=== PATIENT | female | born 1960 | race Asian ===

== ENCOUNTER 2019-06-14 13:37 | Outpatient (CLI) | payer MEDICAID ==
[2019-06-14 15:57] VITALS: BP 115/76
--- NOTE | 2019-06-14 21:00 | Consultation ---
DATE OF CONSULTATION: 06/14/2019 CONSULTING PHYSICIAN: Matthew Lin M.D. CHIEF COMPLAINT: Pancreatic cyst, need for screening colonoscopy, chronic GERD. HISTORY OF PRESENT ILLNESS: This is a 59-year-old female, referred to us for a screening colonoscopy evaluation, chronic GERD, needs endoscopy and also the patient has pancreatic cyst EUS. PAST MEDICAL HISTORY: 1. Thyroid cancer. 2. Diabetes. 3. Chronic kidney disease. 4. Pancreatic cyst. 5. Anemia. 6. Hypertension. 7. Arthritis. PAST SURGICAL HISTORY: Thyroidectomy. MEDICATIONS: Please see medication reconciliation list. FAMILY HISTORY: No family history of GI malignancies. SOCIAL HISTORY: The patient denies any tobacco, alcohol, or drug abuse. ALLERGIES: To [place]. REVIEW OF SYSTEMS: Positive for abdominal pain and bloating. PHYSICAL EXAMINATION: VITAL SIGNS: Temperature 98.8, pulse is 96, respirations 20, blood pressure is 115/76. HEENT: Normocephalic and atraumatic. Sclerae anicteric. NECK: Supple. No evidence of obvious lymphadenopathy. CARDIOVASCULAR: Regular rate and rhythm. Plus S1 and S2. No obvious murmur. LUNGS: Decreased breath sounds bilaterally based on the supine exam. ABDOMEN: Soft and nontender. No rebound. No guarding. No peritoneal sign. EXTREMITIES: No cyanosis. No clubbing. No edema ASSESSMENT AND PLAN: This is a 59-year-old female, who was referred to us for screening colonoscopy and chronic GERD, needs endoscopy and also pancreatic cyst, needs EUS. The patient was given instruction and preparation for all those studies pending authorization to be scheduled for EGD and endoscopic ultrasound. Matthew Lin M.D. DR: EARLINE JOB#: [id number] CC:
== END 2019-06-14 15:37 | disposition home or self-care (01) ==
LOC: PAN 13:37
DX: K21.9 Gastro-esophageal reflux disease without esophagitis (principal); K86.2 Cyst of pancreas; Z85.850 Personal history of malignant neoplasm of thyroid; I12.9 Hypertensive chronic kidney disease with stage 1 through stage 4 chronic kidney disease, or unspecified chronic kidney disease; E11.22 Type 2 diabetes mellitus with diabetic chronic kidney disease; N18.9 Chronic kidney disease, unspecified; M19.90 Unspecified osteoarthritis, unspecified site; E89.0 Postprocedural hypothyroidism